=== PATIENT | male | born 1990 | race Asian ===

== ENCOUNTER 2021-01-28 17:49 | Emergency (ER) | payer MEDICAID ==
[~2021-01-28] VITALS: Ht 167.6 cm; Wt 68.2 kg
[2021-01-28] MEDS ORDERED: losartan 50mg tablet PO STA (18:14)
[2021-01-28] MEDS ORDERED: LORazepam 1 MG tablet PO ONE (18:15)
[2021-01-28 19:13] LABS: BASOPHILS % (AUTO) 0.9 % (0-1); EOSINOPHILS % (AUTO) 0.9 % (0-6); HEMATOCRIT 50.5 % (42.0-52.0); HEMOGLOBIN 17.5 g/dl (14.0-17.9); LYMPHOCYTES # (AUTO) 1.4 X10'3 (1.1-4.8); LYMPHOCYTES % (AUTO) 28.3 % (21-51); MEAN CORPUSCULAR HEMOGLOBIN 30.7 PG (27.0-31.0); MEAN CORPUSCULAR HGB CONC 34.7 g/dL (33.0-36.5); MEAN CORPUSCULAR VOLUME 88.7 FL (78-98); MEAN PLATELET VOLUME 8.3 FL (7.4-10.4); MONOCYTES # (AUTO) 0.5 X10'3 (0-0.9); MONOCYTES % (AUTO) 10.5 % (2-12); NEUTROPHILS # (AUTO) 2.9 X10'3 (1.8-7.7); NEUTROPHILS % (AUTO) 59.4 % (42-75); PLATELET COUNT 214 X10'3 (140-440); RED BLOOD COUNT 5.69 X10'6 (4.70-6.10); RED CELL DISTRIBUTION WIDTH 13.1 % (11.5-14.5); WHITE BLOOD COUNT 4.9 X10'3 (4.5-11.0)
[2021-01-28 19:25] LABS: URINE AMPHETAMINE SCREEN NEGATIVE (Neg); URINE BARBITUATE SCREEN NEGATIVE (Neg); URINE BENZODIAZEPINES SCREEN NEGATIVE (Neg); URINE CANNABINOID SCREEN NEGATIVE (Neg); URINE COCAINE SCREEN NEGATIVE (Neg); URINE METHADONE SCREEN NEGATIVE (Neg); URINE OPIATE SCREEN NEGATIVE (Neg); URINE PHENCYCLIDINE SCREEN NEGATIVE (Neg)
[2021-01-28 19:27] LABS: ALANINE AMINOTRANSFERASE 33 U/L (12-78); ALBUMIN 4.3 G/DL (3.4-5.0); ALKALINE PHOSPHATASE 86 IU/L (46-116); ANION GAP 13 (8-16); ASPARTATE AMINO TRANSFERASE 18 U/L (10-37); BILIRUBIN,TOTAL 0.6 MG/DL (0.1-1.0); BLOOD UREA NITROGEN 23 MG/DL (7-18); BUN/CREATININE RATIO 10.9 (5.4-32.0); CALCIUM 9.2 MG/DL (8.5-10.1); CHLORIDE 103 MMOL/L (99-107); CREATININE 2.11 MG/DL (0.60-1.10); GLUCOSE 86 MG/DL (70-104); POTASSIUM 3.7 MMOL/L (3.5-5.1); SODIUM 143 MMOL/L (135-145); TOTAL CARBON DIOXIDE 27.1 MMOL/L (24-32); TOTAL PROTEIN 8.8 G/DL (6.4-8.2); eGFR 37 ML/MIN
[2021-01-28 19:27] LABS: CLARITY,URINE CLEAR (Clear); COLOR,URINE YELLOW (Yellow); UA COLLECTION TYPE CLN CATCH MIDSTREAM
[2021-01-28 19:28] LABS: GLUCOSE, URINE NEGATIVE (Neg); KETONES,URINE TRACE mg/dl (Neg); PROTEIN,URINE 300 mg/dl (Neg)
[2021-01-28 19:29] LABS: LEUKOCYTE ESTERASE ,URINE NEGATIVE (Neg); NITRITES, URINE NEGATIVE (Neg); OCCULT BLOOD,URINE SMALL (Neg); UROBILINOGEN,URINE 0.2 E.U/dL (0.2-1.0)
--- NOTE | 2021-01-28 19:30 | NUR ---
PT STATES HE HAS BEEN OFF HIS ANTIDEPRESSANT MEDICATION FOR "ABOUT A MONTH", STATES HE QUIT TAKING IT BECAUSE IT MAKES HIM CONSTIPATED. PT ALSO STATES THE ANTIDEPRESSANTS HAVEN'T WORKED FOR HIM SO FAR
[2021-01-28 19:33] LABS: BACTERIA,URINE FEW /HPF (Neg); MUCUS STRANDS FEW /LPF (Neg); SQUAMOUS EPITHELIAL CELL,UR FEW /LPF (FEW)
[2021-01-28 19:34] LABS: RBC,URINE 0-2 /HPF (0-2)
[2021-01-28 19:35] LABS: HYALINE CASTS 0-3 /LPF (NEGATIVE); WBC,URINE 0-4 /HPF (0-4)
[2021-01-28 19:37] LABS: ETHANOL < 0.010 GM/DL (0.0-0.010)
[2021-01-28] MEDS ORDERED: normal saline 1000ML IV soln IVB ONE (19:40)
--- NOTE | 2021-01-28 20:00 | NUR ---
PT RESTLESS IN HIS ROOM, INSISTS THAT THERE HAS BEEN A MISUNDERSTANDING AND SAYING HE DOES NOT WANT TO STAY HERE. PROCESS WAS EXPLAINED TO PT FOR MENTAL HEALTH HOLD.
--- NOTE | 2021-01-28 21:30 | NUR ---
PT WAS MEDICATED WITH ATIVAN FOR ANXIETY, CONTINUES TO STATE THAT THERE HAS BEEN A MISUNDERSTANDING
[2021-01-28] MEDS ORDERED: LOSA50TA3 PO (21:58)
[2021-01-28] MEDS ORDERED: CHOL20002 PO (21:58)
[2021-01-28] MEDS ORDERED: PARO-62 PO (21:58)
[2021-01-28] MEDS ORDERED: ONDA-103 PO (21:58)
--- NOTE | 2021-01-28 22:54 | NUR ---
PT RESTING COMFORTABLY ON BACK, REQUESTED LIGHTS OFF D/T GONSALEZ.
--- NOTE | 2021-01-29 | NUR ---
PT APPEARS TO BE SLEEPING ON [facility]
--- NOTE | 2021-01-29 01:00 | NUR ---
PT SLEEPING, NO CHANGE
--- NOTE | 2021-01-29 02:00 | NUR ---
PT REMAINS ASLEEP, NO CHANGE
--- NOTE | 2021-01-29 07:23 | NUR ---
PT RESTING ON RIGHT SIDE RR EQUAL AND UNLABORED
[2021-01-29 07:28] VITALS: BP 122/76
--- NOTE | 2021-01-29 08:05 | NUR ---
CALLED TO PT ROOM FOR UPDATE ON PROCESS. INFORMED HIM WE ARE CONTINUING TO WAIT FOR [facility] FOR EVAL. PT STATED HE FEELS BEING HERE IS A MISS UNDERTANDING AND HE WAS JUST WANTING TO GET SOME HELP WITH HIS DEPRESSION AND HE IS NOT SI. INFORMED HIM [facility] WILL BE IN THIS AM. INFORMED HIM BREAKFAST WILL BE HER SOON. PRINTED HIM SOME WORD SEARCHES. PT STATES THANKS NOW I CAN HAVE SOMTHING TO DO
[2021-01-29 08:35] LABS: ALANINE AMINOTRANSFERASE 26 U/L (12-78); ALBUMIN 3.7 G/DL (3.4-5.0); ALBUMIN/GLOBULIN RATIO 1.1 (1.1-1.5); ALKALINE PHOSPHATASE 67 IU/L (46-116); ANION GAP 8 (8-16); ASPARTATE AMINO TRANSFERASE 13 U/L (10-37); BILIRUBIN,TOTAL 0.9 MG/DL (0.1-1.0); BLOOD UREA NITROGEN 20 MG/DL (7-18); BUN/CREATININE RATIO 10.9 (5.4-32.0); CALCIUM 8.4 MG/DL (8.5-10.1); CHLORIDE 109 MMOL/L (99-107); CREATININE 1.84 MG/DL (0.60-1.10); GLUCOSE 88 MG/DL (70-104); POTASSIUM 4.1 MMOL/L (3.5-5.1); SODIUM 143 MMOL/L (135-145); TOTAL CARBON DIOXIDE 25.8 MMOL/L (24-32); eGFR 43 ML/MIN
--- NOTE | 2021-01-29 11:18 | NUR ---
MOVED FROM ER BED 11 TO OF BED 24
--- NOTE | 2021-01-29 11:33 | NUR ---
Received pt from ER maint to bed 24. Pt has been up to use the bathroom. Called [facility] office who state they have not received a packet on him. Medical clearance to be documented and then packet will be sent to [facility] office.
[2021-01-29] MEDS ORDERED: HYDR-3686 PO (12:02)
--- NOTE | 2021-01-29 12:08 | NUR ---
Provided prune juice to pt for c/o constipation. Bowel sounds present X 4. Pt reports that he only took his antidepressant Effexor for around 3 weeks then became constipated so stopped taking it. Pt did not take any antidepressant for approximately 1 month. He has a new prescription for Paxil which he has not started but would like to try. Pt reports that he had been at an appointment with his marble helper at [facility] for chronic migraine pain when he reported some suicidal ideation due to migraines and depression. He was evaluated by a therapist there and placed on a 5150. Pt is denying SI today. Pt has HTN for which he takes losartan potassium. He also has CKD and had an Egfr of 37 with BUN of 23 and creatinine of 2.11 per ED labs. Pt states he saw a marble helper a couple of years ago but now his PCP follows his renal function.
--- NOTE | 2021-01-29 12:14 | NUR ---
Med rec completed, signed by and faxed to pharmacy.
[2021-01-29] MEDS ORDERED: hydrOXYzine 25 MG tablet PO PRN (12:20)
[2021-01-29] MEDS ORDERED: ondansetron 4mg rapidly disintigrating tab PO PRN (12:20)
--- NOTE | 2021-01-29 13:05 | NUR ---
Pt did not receive a lunch tray. Pt did not have a diet order. Faxed kitchen a late tray request.
--- NOTE | 2021-01-29 13:14 | NUR ---
Still waiting for the ER MD to come see the patient and medically clear him as pt was not medically cleared last night.
--- NOTE | 2021-01-29 14:03 | NUR ---
PT PACKET FAXED TO [facility]
--- NOTE | 2021-01-29 15:17 | NUR ---
Pt states he is lactose intolerant and can't drink milk, pt was provided with juice and allergy list was updated.
--- NOTE | 2021-01-29 16:01 | NUR ---
Pt is being evaluated by [facility].
--- NOTE | 2021-01-29 17:05 | NUR ---
Pt is being discharged.
--- NOTE | 2021-01-29 17:16 | NUR ---
Pt discharged at 1715. Pt escorted out of the hospital by tech. Pt will walk to his car parked at [facility].
[2021-01-30] MEDS ORDERED: losartan 50mg tablet PO SCH (08:00)
[2021-01-30] MEDS ORDERED: cholecalciferol (vitamin D3) 1,000 unit (25mcg) tablet PO SCH (08:00)
[2021-01-30] MEDS ORDERED: PARoxetine 20mg tablet PO SCH (08:00)
== END 2021-01-29 17:15 | disposition home or self-care (01) ==
LOC: ER 17:49
DX: R45.851 Suicidal ideations (principal); F32.9 Major depressive disorder, single episode, unspecified; I10 Essential (primary) hypertension; N28.9 Disorder of kidney and ureter, unspecified; Z20.822 Contact with and (suspected) exposure to COVID-19
CPT/HCPCS: 36415; 80053; 80305; 80320; 81001; 84443; 85025; 96360; 96361; 99285; J7030

== ENCOUNTER 2022-06-11 12:13 | Day surgery (SDC) | payer MEDICAID ==
[~2022-06-11] VITALS: Ht 167.6 cm; Wt 67.2 kg
[~2022-06-11 12:13] MED LIST: CHOL20002 PO; HYDR-3686 PO; LOSA50TA3 PO; ONDA-103 PO; PARO-141 PO
[2022-06-11 12:51] VITALS: BP 121/101
[2022-06-11] MEDS ORDERED: fentaNYL/PF 50MCG/1 ML 2ML syringe ONE (13:34)
[2022-06-11] MEDS ORDERED: MIDAZolam 1 MG/ML 5ML VIAL ONE (13:35)
[2022-06-11] MEDS ORDERED: diphenhydrAMINE 50 mg/ml inj ONE (13:35)
[2022-06-11 13:57] VITALS: BP 135/88
[2022-06-11 14:07] VITALS: BP 131/89
[2022-06-11 14:17] VITALS: BP 127/92
[2022-06-11 14:27] VITALS: BP 130/77
== END 2022-06-11 14:30 | disposition home or self-care (01) ==
LOC: GI LAB 12:13
PROVIDERS: ATTEND Internal Medicine Gastroenterology
DX: R10.11 Right upper quadrant pain (principal); K59.04 Chronic idiopathic constipation; K64.0 First degree hemorrhoids; I12.9 Hypertensive chronic kidney disease with stage 1 through stage 4 chronic kidney disease, or unspecified chronic kidney disease; N18.9 Chronic kidney disease, unspecified; Z79.899 Other long term (current) drug therapy; Z91.011 Allergy to milk products
CPT/HCPCS: 45378; 99152; J1200; J2250; J3010; J7030; Z7512; A4620